=== PATIENT | male | born 1980 | race Caucasian/White ===

== ENCOUNTER → 2018-10-11 | Outpatient (CLI) | payer BC ==
[2018-10-11 10:39] LABS: Blood Urea Nitrogen 11 mg/dL (9-20)
--- NOTE | 2018-10-11 13:31 | CT ---
EXAMINATION TYPE: CT angio chest DATE OF EXAM: 10/11/2018 COMPARISON: CTA chest August 18, 2016 and older CTs back through August 01, 2014 HISTORY: Thoracic aortic aneurysm. CT DLP: 278.80 mGycm. Automated Exposure Control for Dose Reduction was Utilized. CONTRAST: CTA scan of the thorax is performed with IV Contrast, patient injected with 100 mL of Isovue 370, ane urysm protocol. Three-D reconstructed Images are created on independent scanner and reviewed. FINDINGS: LUNGS: The lungs are grossly clear, there is no concerning parenchymal mass or nodule identified. T here is no pleural effusion or pneumothorax seen. The tracheobronchial tree is patent. MEDIASTINUM: There are no greater than 1 cm hilar or mediastinal lymph nodes. No cardiomegaly or pe ricardial effusion is seen. Main pulmonary artery at bifurcation measures 3.0 cm in diameter axial image 20, CT findings suggesti ng underlying pulmonary hypertension. Correlate clinically. Adjacent ascending aorta measures up to 3 .0 cm in diameter not significantly changed from prior studies. Patent three-vessel from November are id entified. No significant plaque is present. Patent upper abdominal arteries are seen. No linear hypod ensity to suggest dissection is identified. OTHER: Small degree of bilateral gynecomastia remains present. Slight S-shaped scoliotic curvature is noted. IMPRESSION: Unchanged slight prominence to ascending aorta measuring up to 3.0 cm in diameter on curr ent study. Unchanged prominence of central pulmonary arteries.
== END | disposition home or self-care (01) ==
LOC: RADCTMAIN 10:06
PROVIDERS: ATTEND Internal Medicine Interventional Cardiology
DX: I71.2 Thoracic aortic aneurysm, without rupture (principal)
CPT/HCPCS: 82565; 84520; 71275; 36415; Q9967

== ENCOUNTER → 2020-08-20 | Outpatient (CLI) | payer BC | END | disposition home or self-care (01) | LOC: LABWHC1 15:55 | PROVIDERS: ATTEND Family Medicine | DX: Z20.828 Contact with and (suspected) exposure to other viral communicable diseases (principal) | CPT/HCPCS: U0003; C9803 ==

== ENCOUNTER → 2022-03-02 | Outpatient (CLI) | payer BC ==
--- NOTE | 2022-03-02 12:11 | CT ---
EXAMINATION TYPE: CT angio chest DATE OF EXAM: 03/02/2022 COMPARISON: CT dated 10/11/2018 HISTORY: Thoracic aortic aneurysm CT DLP: 809 mGy.cm. Automated Exposure Control for Dose Reduction was Utilized. TECHNIQUE AND CONTRAST: CTA scan of the thorax is performed without and with IV Contrast, patient injected with 100 ml mL of Isovue 370, thoracic aortogram protocol. MIP and 3-D Images are created on an independent workstati on and reviewed. FINDINGS: The ascending aorta measures 3.5 cm compared to 3.[address] scan[address] Otherwise normal caliber and enhancement of the remainder of the thoracic and upper abdominal aorta as well as major mediastinal a nd upper abdominal arteries. The pulmonary trunk measures 3.2 cm which may suggest pulmonary hypertension. No major or central pul monary embolism. Slightly increased cardiac size, please correlate with echocardiographic results. Unremarkable lungs. No pleural effusion or pericardial effusion. Patent trachea and main bronchi. No pathologically enlarged lymph nodes in the chest. Unremarkable upper abdomen. No aggressive bone lesi on. IMPRESSION: Slight interval increase in the diameter of the ascending aorta measuring up to 3.5 cm compared to 3. 3 cm previously. Other findings as described above.
== END | disposition home or self-care (01) ==
LOC: RADCTMAIN 08:51
PROVIDERS: ATTEND Internal Medicine Interventional Cardiology
DX: I71.2 Thoracic aortic aneurysm, without rupture (principal)
CPT/HCPCS: 71275; Q9967